=== PATIENT | female | born 1955 | race Caucasian/White ===

== ENCOUNTER → 2016-07-28 | Outpatient (CLI) | payer BC ==
[2016-07-28 11:05] LABS: BILIRUBIN,URINE NEGATIVE (NEG); CLARITY,URINE CLEAR (CLEAR); GLUCOSE, URINE (UA) NEGATIVE (NEG); LEUKOCYTE ESTERASE ,URINE NEGATIVE (NEG); NITRATE,URINE NEGATIVE (NEG); OCCULT BLOOD,URINE NEGATIVE (NEG); PROTEIN,URINE NEGATIVE (NEG); UROBILINOGEN,URINE 0.2 EU/dL (0.2)
[2016-07-28 11:07] LABS: URINE SAMPLE TYPE CLEAN CATCH URINE
== END ==
LOC: MOB LAB 09:45
PROVIDERS: ATTEND Physician Assistant Medical
DX: E03.9 Hypothyroidism, unspecified (principal); R30.0 Dysuria; R39.15 Urgency of urination
CPT/HCPCS: 36415; 81003; 84443

== ENCOUNTER → 2016-08-05 | Outpatient (CLI) | payer BC ==
--- NOTE | 2016-08-05 09:23 | DI ---
ABDOMINAL ULTRASOUND, 08/05/2016 7:41 AM: Clinical History: Early satiety. Previous Exam: None at this facility. Scans are performed through the right and left upper quadrants in multiple projections. The gallbladder is well distended and has a normal wall thickness. There are no gall stones. Common b ile duct 3.0 mm. The visualized portions of the right and left lobes of the liver, both kidneys, and the spleen are normal. The liver length is 16.1 cm. The spleen length is 8.4 cm. The head and body of the pancreas are visualized and that structure is normal. The IVC and aorta are normal. READING: Normal abdominal ultrasound.
== END ==
LOC: US 07:36
PROVIDERS: ATTEND Physician Assistant Medical
DX: R10.84 Generalized abdominal pain (principal); R68.81 Early satiety; F17.210 Nicotine dependence, cigarettes, uncomplicated
CPT/HCPCS: 76700

== ENCOUNTER → 2016-08-28 | Outpatient (CLI) | payer BC | LOC: LAB 08:21 | PROVIDERS: ATTEND Physician Assistant Medical | DX: E03.9 Hypothyroidism, unspecified (principal) | CPT/HCPCS: 36415; 84443 ==

== ENCOUNTER → 2016-08-29 | Outpatient (CLI) | payer BC ==
--- NOTE | 2016-08-31 13:47 | DI ---
RIGHT SHOULDER, 08/29/2016 9:04 AM: Clinical History: Right shoulder pain. Previous Exam: None at this facility. 3 views are submitted. There is no acute soft tissue, osseous, or joint abnormality. The visualized p ortions of the right apex and right lung are normal. There is osteoporosis. Readin. Normal right shoulder exam. 2. Osteoporosis.
== END ==
LOC: MOB RAD 09:11
PROVIDERS: ATTEND Physician Assistant Medical
DX: M25.511 Pain in right shoulder (principal); X50.0XXA Overexertion from strenuous movement or load, initial encounter; F17.210 Nicotine dependence, cigarettes, uncomplicated
CPT/HCPCS: 73030

== ENCOUNTER → 2016-12-05 | Outpatient (CLI) | payer BC | LOC: LAB 08:14 | PROVIDERS: ATTEND Physician Assistant Medical | DX: E03.9 Hypothyroidism, unspecified (principal) | CPT/HCPCS: 36415; 84443 ==

== ENCOUNTER → 2017-02-20 | Outpatient (CLI) | payer BC ==
[2017-02-20 10:36] LABS: BASOPHILS # (AUTO) 0.05 10*3/UL; BASOPHILS % (AUTO) 0.6 % (0-1); EOSINOPHILS % (AUTO) 1.2 % (0-8); HEMATOCRIT 39.7 % (37.0-47.0); HEMOGLOBIN 13.8 g/dL (12.0-16.0); LYMPHOCYTES # (AUTO) 2.44 10*3/uL; MEAN CORPUSCULAR HEMOGLOBIN 33.1 PG (27-31); MEAN CORPUSCULAR HGB CONC 34.8 g/dL (33-37); MEAN CORPUSCULAR VOLUME 95.2 FL (81-99); MEAN PLATELET VOLUME 10.5 FL (7.4-12.2); MONOCYTES # (AUTO) 0.72 10*3/UL (0.3-0.8); MONOCYTES % (AUTO) 8.5 % (5-15); NEUTROPHILS # (AUTO) 5.13 10*3/UL; NEUTROPHILS % (AUTO) 60.7 % (50-80); RED BLOOD COUNT 4.17 10^6/uL (4.20-5.40)
[2017-02-20 10:46] LABS: BLOOD UREA NITROGEN 11 mg/dL (7-22); BUN/CREATININE RATIO 13.75 (6-20); CALCIUM 10.2 mg/dL (8.7-10.7); EST GLOMERULAR FILTRATION > 60 (>60 ml/min/1.73m(2)); HDL CHOLESTEROL 51 mg/dL (40-150); SERUM ALBUMIN 4.2 g/dL (3.5-4.8); SERUM CHOLESTEROL 199 mg/dL (120-200)
[2017-02-20 10:52] LABS: PLATELET MORPHOLOGY COMMENT NORMAL MORPHOLOGY (NORM); RBC MORPHOLOGY COMMENT NORMAL MORPHOLOGY (NORM); WBC MORPHOLOGY COMMENT NORMAL MORPHOLOGY (NORM)
[2017-02-20 12:31] LABS: FREE T4 (FREE THYROXINE) 2.26 ng/dL (0.93-1.71)
== END ==
LOC: MOB LAB 09:36
PROVIDERS: ATTEND Physician Assistant Medical
DX: R42 Dizziness and giddiness (principal); E03.9 Hypothyroidism, unspecified; R51 Headache; R43.8 Other disturbances of smell and taste; I10 Essential (primary) hypertension; Z72.0 Tobacco use
CPT/HCPCS: 36415; 80053; 80061; 84439; 84443; 85025